=== PATIENT | female | born 1945 | race Caucasian/White ===

== ENCOUNTER 2016-08-17 08:18 | Emergency (ER) | payer MEDICARE, OTHER ==
--- NOTE | 2016-08-17 08:56 | ERNOTE ---
Upper Extremity HPI - Narrative Date of Service: 08/17/16 - General Extremities Pain Location: elbow: left Time Seen by Provider: 08/17/16 08:53 Source: patient - Immun/Allergies/Home Medications Immunizations: IMMUNIZATION HX Immunizations Up to Date Yes History of Influenza Vaccine No Hx Pneumococcal Vaccination Yes Allergies/Adverse Reactions: Allergies Allergy/AdvReac Type Severity Reaction Status Date / Time No Known Allergies Allergy Unverified 08/17/16 08:31 Home Medications: HOME MEDICATIONS Glucosamine/D3/Boswellia Denae [Glucosamine Daily Complex Tab] 1 each PO DAILY 08/17/16 [Last Taken Unknown] Lisinopril [Zestril] 30 mg PO DAILY 08/17/16 [Last Taken Unknown] Meloxicam [Mobic] 15 mg PO DAILY #10 tab 08/17/16 [Last Taken Unknown] diphenhydrAMINE HCL [Benadryl] 25 mg PO DAILY 08/17/16 [Last Taken Unknown] - History of Present Illness Narrative: PT CC = LLEFT ELBOW PAIN X 1 WEEK WITH NO HX. OF ANY INJURY. SAYS SHE THINKSIT MAY BE A LITTLE SWOLLEN. NO HX OF PAST PROBLEM WITH ELBOW. Review of Systems - Review of Systems Constitutional: Present: See HPI Musculoskeletal: Present: See HPI, joint pain All Other Systems: All systems neg except as marked - Patient's Past Medical History Patient History - Medical: No pertinent hx Patient History - Cardiac/Respiratory: Hypertension Patient History - Cancer: No Hx of Cancer Patient History - Surgical Procedures: , Hysterectomy Patient History - Other: None - Social History Living Situations: spouse Abuse History: No History of abuse Psych History: No pertinent hx Smoking Status: Never smoker Do you dip or chew tobacco: No Alcohol Use: rarely Drug Use: none - Immunizations Immunizations Up to Date: Yes Hx Pneumococcal Vaccination: Yes History of Influenza Vaccine: No ED Progress - Vital Signs Patient's Vital Signs:: I have reviewed the patient's vital signs. Vital Signs: Vital Signs 08/17/16 08:24 Temperature 37.4 C Pulse Rate 74 Respiratory 14 Rate Blood Pressure 167/95 O2 Sat by Pulse 98 Oximetry - X-Ray X-Ray #1 X-Ray: elbow Interpretation: Reviewed by me - NEGATIVE - Progress/Reassessment Chief Complaint: Upper Extremity Injury/Problem Departure Clinical Impression: Elbow arthritis - Departure Disposition: Home Follow Up Needed Condition: Good Instructions: Elbow Bursitis, [id number] Additional Instructions: USE DAILY BIO-FREEZE OR PREFORM TO SORE JOINT. IF ICE IS NOT HELPING IT IS OK TO TRY HEAT TO THE AREA . RECHECK WITH YOUR FAMILY DOCTOR IN 5-7 DAYS TO RE - EXAMINE YOUR ELBOW. Referrals: Nathen Rm MD [Primary Care Provider] - Prescriptions: Meloxicam [Mobic] 15 mg PO DAILY #10 tab
--- OUTSIDE RECORDS SUMMARY | 2016-08-17 09:19 | XMS REPORT | Continuity of Care Document ---
:1945 Author Organization [facility] ([facility]) Address [address] [place] [address] Phone [phone] Care Team Providers Name Role Phone Florian Shore Primary Care Provider [phone] Source Comments This disclosure is being made pursuant to the Care Everywhere program, applicable federal and state laws, and may not contain all informaitonavailable regarding this patient.[facility] ([facility]) Active Allergies and Adverse Reactions No Known Allergies Current Medications Prescription Sig. Disp. Refills Start Date End Date Status LISINOPRIL PO Take by mouth. Active PSEUDOEPHED/ACETAMINOPH/DIPH Take by mouth. Active EN (BENADRYL COLD PO) CALCIUM CARBONATE/VITAMIN D3 Take by mouth. Active (CALCIUM + D PO) glucosamine & chondroit Take by mouth. Active sul.Na 750-400 mg Cmpk Active Problems Not on file Social History Tobacco Use Types Packs/Day Years Used Date Never Smoker Alcohol Use Drinks/Week oz/Week Comments Yes social Plan of Care Health Maintenance Due Date Last Done Comments HCV Screening 1945 Hepatitis B Vaccine (1 of 3 - Primary Series) 1945 Tdap Vaccine 11/27/1958 Lipid Disorder Screening 11/27/1965 Td Vaccine 11/27/1965 Mammogram 1987 Colonoscopy 11/27/1997 Zoster Vaccine 2007 Osteoporosis Screening (DXA Bone Density) 11/27/2012 Pneumococcal Vaccine (1 of 2 - PCV13) 11/27/2012 Influenza Vaccine: Seasonal (#1) 12/05/2015 Results from Last 3 Months Not on file
[2016-08-17 11:07] VITALS: BP 159/86
== END 2016-08-17 11:20 | disposition home or self-care (01) ==
LOC: ER 08:18
DX: M19.022 Primary osteoarthritis, left elbow (principal); I10 Essential (primary) hypertension

== ENCOUNTER 2017-05-13 10:28 | Day surgery (SDC) | payer MEDICARE, OTHER ==
[~2017-05-13 10:28] MED LIST: RINGER'S SOLUTION,LACTATED 1,000 ML IV PRN
[2017-05-13] MEDS ORDERED: RINGER'S SOLUTION,LACTATED 1,000 ML IV ONE (11:01)
[2017-05-13] MEDS ORDERED: RINGER'S SOLUTION,LACTATED 1,000 ML IV PRN (12:29)
[2017-05-13 13:07] VITALS: BP 137/79
--- NOTE | 2017-05-13 18:16 | OR ---
Operative Report - Dictated Report Narrative: OPERATIVE REPORT DATE OF OPERATION: 05/13/2017 PREOPERATIVE DIAGNOSIS: No recent dedicated colon studies POSTOPERATIVE DIAGNOSIS: Diverticulosis otherwise normal colonoscopy OPERATION: Colonoscopy SURGEON: Braeden lElison MD ANESTHESIA: MAXIMILIANO Lynne CRNA INDICATIONS FOR PROCEDURE: The patient is a 71-year-old female referred by A Alban CARRANZAP> the patient's last colonoscopy was normal in 2007. She does have constipation and a trial of Benefiber was suggested. FINDINGS: Very capacious and redundant colon with several diverticula, otherwise normal exam to the colon NARRATIVE OF PROCEDURE: The patient was identified in the holding area, and prior to the administration of anesthetic, a multidisciplinary timeout was observed. With the patient in the left lateral position and after the administration of intravenous sedation, the perineum was inspected. There was no evidence of pilonidal disease or skin breakdown. The external appearance of the anus was normal. Sphincter tone was good. The flexible fiberoptic colonoscope was inserted into the rectum which was insufflated with air. The rectal mucosa and submucosal vascular pattern appeared normal, the prep was seen to be complete. The scope was advanced through the sigmoid colon, up the descending colon, and around the splenic flexure where the triangular haustral architecture of the transverse colon was seen. The scope was advanced across the transverse colon, around the hepatic flexure to the cecum, where the confluence of tenia and the ileocecal valve were identified. The mucosa at this level appeared normal. The scope was then slowly withdrawn in a circular fashion so that all aspects of colonic mucosa were inspected. The colon was extremely capacious and character and redundant in course requiring the use of standard reduction maneuvers and gentle external manual compression on the abdomen to reach the cecum. The haustral architecture appeared well preserved throughout with no evidence of external compression. The mucosa and submucosal vascular pattern appeared normal, specifically there was no gross evidence to suggest colitis or inflammatory bowel disease and no AV malformations were seen. At least 2 non-impacted noninflamed diverticular openings were noted. No polyps were encountered. The scope was gradually withdrawn to the level of the rectum. As much insufflated air as possible was removed. The scope was withdrawn from the patient and the procedure terminated. The patient tolerated the anesthetic and procedure well without complication and was transferred back to the ambulatory surgery area awake and in stable condition. The patient remained stable throughout a period of postoperative observation. She denied abdominal discomfort, was able to tolerate by mouth intake, and was up without assistance. I shared the operative findings with the patient and her and she was given copies of the photographs which appear in the medical record. She was discharged home with instructions not to engage in hazardous activity today, but may resume normal activity tomorrow, and advance diet as tolerated. She is to continue those medications as listed in the history and physical exam. RECOMMENDATION: The patient has had marked improvement in her bowel habit with the trial of Benefiber, and I suggested she continue this. Reviewed and electronically signed
== END 2017-05-13 10:29 | disposition home or self-care (01) ==
LOC: AMB 10:28
PROVIDERS: ATTEND Surgery
PROC: 0DJD8ZZ Inspection of Lower Intestinal Tract, Via Natural or Artificial Opening Endoscopic (ICD-10-PCS; principal; 2017-05-13)
DX: I10 Essential (primary) hypertension; M19.90 Unspecified osteoarthritis, unspecified site; K59.00 Constipation, unspecified; Z68.27 Body mass index [BMI] 27.0-27.9, adult; K57.30 Diverticulosis of large intestine without perforation or abscess without bleeding; Z12.11 Encounter for screening for malignant neoplasm of colon